=== PATIENT | female | born 1975 | race Caucasian/White ===

== ENCOUNTER 2016-07-03 20:17 | Emergency (ER) | payer OTHER ==
[2016-07-03] MEDS ORDERED: LORazepam 2 MG/ML VIAL IVP ONE (20:30)
[2016-07-03] MEDS ORDERED: ONDANSETRON HCL 4 MG TAB.RAPDIS PO ONE (20:39)
[2016-07-03] MEDS ORDERED: HYOSCYAMINE SULFATE 0.125 MG TAB.SUBL SL ONE (21:00)
[2016-07-03 21:15] VITALS: BP 149/92
--- NOTE | 2016-07-04 03:49 | ED Physician Documentation ---
Abdominal Pain - HISTORIAN Historian: patient - HPI Stated Complaint: ABD PAIN AND VOMITTING Chief Complaint: Abdominal Pain Additonal Information: panic attack earlier started the abd. issues Onset: hours (1) Duration: sudden-onset Timing: better Context: other (stress over family memeber). denies: out of country travel, bad food Severity: moderate Quality: cramping Associated Symptoms: nausea, vomiting Exacerbated by: other (anxiety) Relieved by: other (calming) Further Comments: no - ROS CONST: other (anxiety) GI/: other (as above) CVS/RESP: none EYES/ENT: none MS/SKIN/LYMPH: none NEURO/PSYCH: none - SOCIAL HX Smoking History: cigarettes Alcohol Use: none Drug Use: none - FAMILY HX Family History: no significant history - PAST HX Past History: other (anxiety, bipolar disorder, cad, ibs) Surgeries/Procedures: none Immunizations: referred to PCP Allergies/Adverse Reactions: Allergies Allergy/AdvReac Type Severity Reaction Status Date / Time Sulfa (Sulfonamide Allergy Unknown Verified 07/03/16 20:23 Antibiotics) [Sulfa(Sulfonamide Antibiotics)] - VITAL SIGNS Vital Signs: Vital Signs Temp Pulse Resp BP Pulse Ox 97.8 F 77 22 149/92 99 07/03/16 21:11 07/03/16 21:11 07/03/16 21:11 07/03/16 21:11 07/03/16 21:11 - REVIEWED ASSESSMENTS Nursing Assessment Reviewed: Yes Vitals Reviewed: Yes Progress - Results/Orders Results/Orders: no testing ordered - Progress Progress: pt. given 1 mg ativan im, 8 mg zofran p.o. and 0.25 mg levsin p.o. Critical Care Note - Critical Care Note Total Time (mins): 0 ED Results Lab/Radiology - Lab Results Lab Results: none ordered - Radiology Radiology Impressions: none ordered - Orders Orders: ED Orders Category Date Time Status Place Saline Lock/IV Now Care 07/03/16 20:30 Active Hyoscyamine Sulfate [Oscimin Sl] Med 07/03/16 21:00 Discontinued 0.25 mg SL NOW ONE LORazepam [Ativan] Med 07/03/16 20:30 Discontinued 1 mg IVP NOW ONE Ondansetron HCl Rapdis [Zofran Odt] Med 07/03/16 20:39 Discontinued 8 mg PO NOW ONE Abdominal Pain Physical Exam - Physical Exam General Appearance: alert, moderate distress EENT: eye inspection normal, ENT inspection normal, pharynx normal, no signs of dehydration, ABEBA, no nystagmus, TM's nml NECK: normal inspection, thyroid normal, supple RESPIRATORY: no resp distress, chest non-tender, breath sounds normal CVS: reg rate & rhythm, heart sounds normal, equal pulses, no murmur, no gallop , PMI nml ABDOMEN: soft, no organomegaly, normal bowel sounds, no abdominal bruit, no distension, non-tender BACK: normal inspection, no CVA tenderness SKIN: warm/dry, normal color EXTREMITIES: non-tender, normal range of motion, no evidence of injury, no edema NEURO: oriented X3, CN's nml as tested, motor nml, sensation nml, other (anxious , crying) Vital Signs: Vital Signs Temp Pulse Resp BP Pulse Ox 97.8 F 77 22 149/92 99 07/03/16 21:11 07/03/16 21:11 07/03/16 21:11 07/03/16 21:11 07/03/16 21:11 Discharge Clincal Impression: Panic attack Irritable bowel syndrome (IBS) Qualifiers: Irritable bowel syndrome type: without diarrhea Qualified Code(s): K58.9 - Irritable bowel syndrome without diarrhea Referrals: Gilmar Joy MD [Primary Care Provider] - 2 Days Comments: discharged home with no scripts, pt. to use meds as per Dr. Joy Condition: Stable Disposition: 01 HOME, SELF-CARE Decision to Admit: NO Decision Time: 21:00
== END 2016-07-03 21:15 | disposition home or self-care (01) ==
LOC: ED 20:17
DX: F41.9 Anxiety disorder, unspecified (principal)
CPT/HCPCS: A9270; J2060; 96374; 99283; S1016

== ENCOUNTER 2016-07-31 15:15 | Outpatient (CLI) | payer OTHER | END 2016-07-31 15:16 | LOC: LAB 15:15 | PROVIDERS: ATTEND Family Medicine | DX: M79.1 Myalgia (principal); E66.01 Morbid (severe) obesity due to excess calories | CPT/HCPCS: 36415; 80061; 85651; 86038; 87086 ==

== ENCOUNTER 2016-08-12 09:33 | Outpatient (CLI) | payer OTHER ==
--- NOTE | 2016-08-13 04:36 | Diagnostic Imaging Report ---
Report Submission Date: Aug 12, 2016 10:35:59 PM CDT Patient ~ Study Name: CALLI PATEL ~ Date: Aug 12, 2016 10:50:57 AM CDT ~ Modality Type: US Gender: F ~ Description: US EXAM ABD BACK WALL : 75 ~ Institution: [facility] Physician: ANGIE GIL ~ ~ ~ ~ Ultrasound renal History: Hematuria Findings: The right kidney measures 10.8 x 4.6 x 5.1 cm and exhibits normal echogenicity and morphology. The left kidney measures 10.5 x 5.2 x 5.6 cm and also exhibits normal echogenicity and morphology. There is no evidence of obstructive uropathy, nephrolithiasis, or border forming renal mass. Urinary bladder is unremarkable. A negligible post void bladder residual is observed. Impression: Normal renal sonogram. ~ Electronically signed on Aug 12, 2016 10:35:59 PM CDT by: Kalyan DAY
== END 2016-08-12 09:34 ==
LOC: RAD 09:33
PROVIDERS: ATTEND Family Medicine
DX: R31.9 Hematuria, unspecified (principal)
CPT/HCPCS: 76770

== ENCOUNTER 2016-08-22 18:41 | Emergency (ER) | payer OTHER ==
[2016-08-22] MEDS ORDERED: ORPHENADRINE CITRATE 60 MG/2ML IM ONE (19:10)
[2016-08-22] MEDS ORDERED: KETOROLAC TROMETHAMINE 60 MG/2 ML VIAL IM ONE (19:10)
[2016-08-22] MEDS ORDERED: ORPHENADRINE CITRATE 60 MG/2ML ONE (19:11)
[2016-08-22] MEDS ORDERED: KETOROLAC TROMETHAMINE 60 MG/2 ML VIAL ONE (19:11)
[2016-08-22] MEDS ORDERED: ONDANSETRON HCL/PF 4 MG/ 2ML VIAL ONE (19:13)
[2016-08-22] MEDS ORDERED: ONDANSETRON HCL/PF 4 MG/ 2ML VIAL IVP ONE (19:13)
[2016-08-22] MEDS ORDERED: LORazepam 2 MG/ML VIAL IVP ONE (19:28)
--- NOTE | 2016-08-22 20:12 | ED Physician Documentation ---
Abdominal Pain - HISTORIAN Historian: patient - HPI Stated Complaint: abdominal pain Chief Complaint: General Adult Additonal Information: Abdominal pain, like labor, began about noon today. Across entire abdomen. Nausea and vomiting x2. So nauseated she couldn't take her Bentyl, Reglan and Valium for irritable bowel syndrome. Last normal bowel movement today followed by a few other stools. Onset: hours Context: denies: out of country travel Quality: cramping Associated Symptoms: vomiting (pt says x8, says x2). denies: coffee ground emesis - ROS CONST: no problems - SOCIAL HX Smoking History: cigarettes - FAMILY HX Family History: no significant history - PAST HX Past History: other (IBS) Home Medications: Ambulatory Orders Medication Instructions Recorded Ondansetron HCl Rapdis [Zofran Odt] 4 mg PO Q8 PRN #10 tab 08/22/16 Allergies/Adverse Reactions: Allergies Allergy/AdvReac Type Severity Reaction Status Date / Time Sulfa (Sulfonamide Allergy Unknown Verified 07/03/16 20:23 Antibiotics) [Sulfa(Sulfonamide Antibiotics)] - VITAL SIGNS Vital Signs: Vital Signs Temp Pulse Resp BP Pulse Ox 99 H 96 H 166/115 99 08/22/16 18:45 08/22/16 18:45 08/22/16 18:45 08/22/16 18:45 - REVIEWED ASSESSMENTS Nursing Assessment Reviewed: Yes Vitals Reviewed: Yes Progress - Progress Progress: Abdominal series with 1 view chest Date of Exam: August 22, 2016. History: 41/F PATIENT COMPLAINS OF SEVERE ABDOMINAL PAIN IN THE UMBILICAL AND LOWER ABDOMEN X 8 HRS; HX OF IRRITABLE BOWEL SYNDROME; NO PREVIOUS SURGERIES (Hx ) / IRRITABLE BOWEL, SEVERE ABD PAIN (DICOM Hx) / IRRITABLE BOWEL, SEVERE ABD PAIN (Pt comments) Findings: No comparison studies are provided. The cardiac and mediastinal silhouettes are normal. The lungs are clear. The trachea is midline and the aortic arch contour is normal. There is no evidence of abdominal free air. Scattered mildly dilated gas filled segments of small bowel are present. There is gas and stool in the colon. A calcification in the right upper abdomen within the ramal contour likely represents a right renal calculus measuring 8 mm. There is mild degenerative lumbar spondylosis. Impression: No acute cardiopulmonary abnormality. Nonspecific abdominal bowel gas pattern. 8 mm right renal calculus. Electronically signed on Aug 22, 2016 8:10:10 PM CDT by: Alexa Sexton UDS non negative for benzodiazepines, cannabnoids, oxycodone Yells at provider. Mad because she did not give permission for drug screen. Wants more pain medication than she received. ED Results Lab/Radiology - Lab Results Lab Results: Lab Results 08/22/16 08/22/16 20:00 20:00 WBC 9.70 K/ul K/ul (4.00-12.00) RBC 4.93 M/ul M/ul (3.90-5.20) Hgb 15.2 g/dL g/dL (12.0-16.0) Hct 46.0 % % (34.5-46.5) MCV 93.2 fl fl (80.0-100.0) MCH 30.7 pg pg (28.0-34.0) MCHC 33.0 g/dL g/dL (30.0-36.0) RDW 14.3 % % (11.3-14.3) Plt Count 343 K/mm3 K/mm3 (130-400) Neut % (Auto) 78.1 % % (39.0-79.0) Lymph % (Auto) 15.1 % L % (16.0-50.0) [place] % (Auto) 3.5 % % (0.0-11.0) Eos % (Auto) 1.8 % % (0.0-6.8) Baso % (Auto) 0.9 (0.0-1.5) Neut # 7.6 # k/uL # k/uL (1.4-7.7) Lymph # 1.5 # k/uL # k/uL (0.6-4.0) [place] # 0.3 # k/uL # k/uL (0.0-0.9) Eos # 0.2 # k/uL # k/uL (0.0-0.6) Baso # 0.1 # k/uL # k/uL (0.0-0.5) Reactive Lymphs % 0.6 % % (0.0-5.0) Reactive Lymphs # 0.1 # k/uL # k/uL (0.0-0.8) Sodium 138 mmol/L mmol/L (136-145) Potassium 4.1 mmol/L mmol/L (3.5-5.0) Chloride 104 mmol/L mmol/L (98-110) Carbon Dioxide 27 mmol/L mmol/L (20-32) BUN 7 mg/dL L mg/dL (10-26) Creatinine 0.7 mg/dL mg/dL (0.4-1.5) Estimated Creat Clear 213 Est GFR ( Amer) > 60 (60 - ) Est GFR (Non-Af Amer) > 60 (60 - ) Glucose 110 mg/dL H mg/dL (70-99) Calcium 9.8 mg/dL mg/dL (8.5-10.5) Total Bilirubin 0.6 mg/dL mg/dL (0.2-1.2) AST 20 U/L U/L (0-41) ALT 17 U/L U/L (0-45) Alkaline Phosphatase 73 U/L U/L (46-116) Total Protein 8.0 g/dL g/dL (6.0-8.5) Albumin 4.6 g/dL g/dL (3.0-5.5) - Orders Orders: ED Orders Category Date Time Status Place Saline Lock/IV Now Care 08/22/16 19:10 Active ABDOMEN WITH PA CHEST [ABD SERIES PA CHEST] [RAD] Stat Exams 08/22/16 Taken CBC/PLATELET/DIFF Routine Lab 08/22/16 20:00 Completed CMP Routine Lab 08/22/16 20:00 Completed DRUG SCREEN URINE MEDICAL ONLY Routine Lab 08/22/16 Ordered URINALYSIS Routine Lab 08/22/16 Ordered URINE HCG [URINE HCG] Stat Lab 08/22/16 Uncollected Ketorolac Tromethamine [Toradol] Med 08/22/16 19:11 Discontinued 60 mg .ROUTE .STK-MED ONE Ketorolac Tromethamine [Toradol] Med 08/22/16 19:10 Discontinued 60 mg IM NOW ONE LORazepam [Ativan] Med 08/22/16 19:28 Discontinued 1 mg IVP NOW ONE Ondansetron HCl Rapdis [Zofran Odt] Med 08/22/16 21:03 Discontinued 12 mg PO NOW ONE Ondansetron HCl/Pf [Zofran 4 mg/2 ml] Med 08/22/16 19:13 Discontinued 4 mg .ROUTE .STK-MED ONE Ondansetron HCl/Pf [Zofran 4 mg/2 ml] Med 08/22/16 19:13 Discontinued 4 mg IVP NOW ONE Orphenadrine Citrate [Norflex] Med 08/22/16 19:11 Discontinued 60 mg .ROUTE .STK-MED ONE Orphenadrine Citrate [Norflex] Med 08/22/16 19:10 Discontinued 60 mg IM NOW ONE Abdominal Pain Physical Exam - Physical Exam General Appearance: severe distress (crying, yelling, retching, spitting), other (much saliva in wash basin) EENT: eye inspection normal, ENT inspection normal, pharynx normal, no signs of dehydration NECK: normal inspection, supple RESPIRATORY: no resp distress, breath sounds normal CVS: reg rate & rhythm, heart sounds normal, no murmur ABDOMEN: soft, normal bowel sounds, no distension, non-tender RECTAL: deferred BACK: normal inspection, no CVA tenderness, other (no midline tenderness) SKIN: warm/dry, normal color EXTREMITIES: normal range of motion (gait), no evidence of injury NEURO: CN's nml as tested, motor nml, sensation nml Vital Signs: Vital Signs Temp Pulse Resp BP Pulse Ox 99 H 96 H 166/115 99 08/22/16 18:45 08/22/16 18:45 08/22/16 18:45 08/22/16 18:45 Discharge Clincal Impression: Chronic abdominal pain Prescriptions: Ondansetron HCl Rapdis [Zofran Odt] 4 mg PO Q8 PRN #10 tab PRN Reason: Nausea / Vomiting Home Medications: Ambulatory Orders Ondansetron HCl Rapdis [Zofran Odt] 4 mg PO Q8 PRN #10 tab 08/22/16 Condition: Fair Disposition: 01 HOME, SELF-CARE Decision to Admit: NO Decision Time: 21:21
[2016-08-22 20:21] LABS: BASOPHILS % 0.9 (0.0-1.5); EOSINOPHILS % 1.8 % (0.0-6.8); MEAN CORPUSCULAR HEMOGLOBIN 30.7 pg (28.0-34.0); MEAN CORPUSCULAR VOLUME 93.2 fl (80.0-100.0); MONOCYTES % 3.5 % (0.0-11.0); NEUTROPHILS # 7.6 # k/uL (1.4-7.7)
[2016-08-22 20:32] LABS: eGFR (African) > 60; eGFR (Non-African) > 60
[2016-08-22] MEDS ORDERED: ONDANSETRON HCL 4 MG TAB.RAPDIS PO ONE (21:03)
[2016-08-22 21:36] VITALS: BP 173/120
--- NOTE | 2016-08-22 22:41 | Diagnostic Imaging Report ---
KATHY NEWTON~ [facility] [id number] [facility] [address] [place], [place]. [address] ~ ~ ~ ~ Report Submission Date: Aug 22, 2016 8:10:10 PM CDT Patient ~ Study Name: CALLI PATEL ~ Date: Aug 22, 2016 7:41:57 PM CDT ~ Modality Type: CR Gender: F ~ Description: ABDOMEN : 75 ~ Institution: [facility] Physician: KATHY NEWTON ~ ~ ~ ~ Abdominal series with 1 view chest Date of Exam: August 22, 2016. History:~ 41/F PATIENT COMPLAINS OF SEVERE ABDOMINAL PAIN IN THE UMBILICAL AND LOWER ABDOMEN X 8 HRS; HX OF IRRITABLE BOWEL SYNDROME; NO PREVIOUS SURGERIES (Hx ) / IRRITABLE BOWEL, SEVERE ABD PAIN (DICOM Hx) / IRRITABLE BOWEL, SEVERE ABD PAIN (Pt comments) Findings: No comparison studies are provided. The cardiac and mediastinal silhouettes are normal. The lungs are clear. The trachea is midline and the aortic arch contour is normal. There is no evidence of abdominal free air. Scattered mildly dilated gas filled segments of small bowel are present. There is gas and stool in the colon. A calcification in the right upper abdomen within the ramal contour likely represents a right renal calculus measuring 8 mm. There is mild degenerative lumbar spondylosis. Impression: No acute cardiopulmonary abnormality. Nonspecific abdominal bowel gas pattern. 8 mm right renal calculus. ~ Electronically signed on Aug 22, 2016 8:10:10 PM CDT by: Alexa DAY
[2016-08-23 05:56] LABS: AMPHETAMINE NEGATIVE ng/mL (<1000); BARBITURATES NEGATIVE ng/mL (<300); CANNABINOIDS NON NEGATIVE ng/mL (<50); COCAINE NEGATIVE ng/mL (<150); METHAMPHETAMINE NEGATIVE ng/mL (<1000); METHYLENEDIOXYMETHAMPHETAMINE NEGATIVE ng/mL (<500)
[2016-08-23 06:07] LABS: APPEARANCE,URINE CLOUDY (CLEAR); COLOR,URINE YELLOW (YELLOW); OCCULT BLOOD,URINE 3+ (NEGATIVE); UROBILINOGEN URINE 0.2 Eu (0.2-1.0)
[2016-08-26 10:40] LABS: CANNABINOIDS CONFIRMATION >150 ng/mL (<15)
== END 2016-08-22 21:20 | disposition home or self-care (01) ==
LOC: ED 18:41
DX: R10.9 Unspecified abdominal pain (principal)
CPT/HCPCS: 74022; 80053; 80365; 80377; 81002; 85025; A9270; J1885; J2060; J2360; J2405; 96372; 96374; 96375; 99283; G0481; G0482; S1016

== ENCOUNTER 2016-10-01 11:54 | Emergency (ER) | payer OTHER ==
[2016-10-01] MEDS: ONDANSETRON HCL/PF 4 MG/ 2ML VIAL IM ONE (12:28)
[2016-10-01] MEDS: LORazepam 2 MG/ML VIAL IVP ONE (12:29)
[2016-10-01] MEDS: HYOSCYAMINE SULFATE 0.125 MG TAB.SUBL SL STA ×2 (12:34)
[2016-10-01] MEDS: DICYCLOMINE HCL 10 MG/ML VIAL IM SCH (12:44)
[2016-10-01] MEDS ORDERED: PANTOPRAZOLE SODIUM INJ. 40 MG VIAL ONE (12:49)
[2016-10-01] MEDS ORDERED: 0.9 % SODIUM CHLORIDE 1,000 ML IV ONE (12:50)
[2016-10-01] MEDS ORDERED: 0.9 % SODIUM CHLORIDE 50 ML IV ONE (12:50)
[2016-10-01] MEDS: 0.9 % SODIUM CHLORIDE 1,000 ML IV ONE (12:55)
[2016-10-01] MEDS: PANTOPRAZOLE SODIUM 40 MG in 0.9 % SODIUM CHLORIDE 50 ML IV SCH (12:55)
[2016-10-01] MEDS: fentaNYL CITRATE/PF 100 MCG/ 2ML AMP IVP ONE (13:20)
[2016-10-01] MEDS: DICYCLOMINE HCL 20 MG TABLET PO ONE (13:22)
[2016-10-01] MEDS: ONDANSETRON HCL/PF 4 MG/ 2ML VIAL IVP ONE (13:55)
[2016-10-01 14:39] VITALS: BP 112/68
--- NOTE | 2016-11-20 12:48 | ED Physician Documentation ---
General Adult - HISTORIAN Historian: patient - HPI Stated Complaint: ABD PAIN/N/V Chief Complaint: General Adult Onset: hours Timing: still present Severity: moderate Further Comments: yes (Pt is a 41 yo female) - ROS CONST: no problems EYES/ENT: none CVS/RESP: none GI/: abdominal pain, vomiting, nausea MS/SKIN/LYMPH: none - PAST HX Past History: other (IBS) Allergies/Adverse Reactions: Allergies Allergy/AdvReac Type Severity Reaction Status Date / Time Sulfa (Sulfonamide Allergy Unknown Verified 10/01/16 12:35 Antibiotics) [Sulfa(Sulfonamide Antibiotics)] Home Medications: Ambulatory Orders Medication Instructions Recorded Ondansetron HCl Rapdis [Zofran Odt] 4 mg PO Q8 PRN #10 tab 08/22/16 - SOCIAL HX Smoking History: cigarettes - FAMILY HX Family History: No - VITAL SIGNS Vital Signs: Vital Signs Temp Pulse Resp BP Pulse Ox 98.5 F 91 H 24 175/112 97 10/01/16 11:54 10/01/16 11:54 10/01/16 11:54 10/01/16 11:54 10/01/16 11:54 - REVIEWED ASSESSMENTS Nursing Assessment Reviewed: Yes Vitals Reviewed: Yes Progress - Progress Progress: 1 L IVF Ativan 1 mg IV Zofran 4 mg IV x 2 Protonix 40 mg IV Hyoscyamine 0.25 mg po Fentanyl 50 mcg IV Bentyl 20 mg po much improved ED Results Lab/Radiology - Orders Orders: ED Orders Category Date Time Status 0.9 % Sodium Chloride [Normal Saline] 1,000 ml Med 10/01/16 12:50 Discontinued IV .STK-MED 0.9 % Sodium Chloride [Normal Saline] 1,000 ml Med 10/01/16 12:49 Discontinued IV Q1H 0.9 % Sodium Chloride [Sodium Chloride] 50 ml Med 10/01/16 12:50 Discontinued IV .STK-MED Dicyclomine HCl [Bentyl] Med 10/01/16 18:00 Discontinued 20 mg IM Q6 Dicyclomine HCl [Bentyl] Med 10/01/16 13:18 Discontinued 20 mg PO NOW ONE Hyoscyamine Sulfate [Oscimin Sl] Med 10/01/16 12:23 Discontinued 0.125 mg SL NOW STA Hyoscyamine Sulfate [Oscimin Sl] Med 10/01/16 12:26 Discontinued 0.125 mg SL NOW STA LORazepam [Ativan] Med 10/01/16 12:22 Discontinued 1 mg IVP NOW ONE Ondansetron HCl/Pf [Zofran 4 mg/2 ml] Med 10/01/16 12:09 Discontinued 4 mg IM NOW ONE Ondansetron HCl/Pf [Zofran 4 mg/2 ml] Med 10/01/16 13:54 Discontinued 4 mg IVP NOW ONE Pantoprazole Sodium [Protonix] Med 10/01/16 12:49 Discontinued 40 mg .ROUTE .STK-MED ONE Pantoprazole Sodium [Protonix] 40 mg Med 10/01/16 13:00 Ordered 0.9 % Sodium Chloride [Sodium Chloride] 50 ml IV DAILY fentaNYL CITRATE/PF [Duragesic] Med 10/01/16 13:18 Discontinued 50 mcg IVP NOW ONE General Adult Physical Exam - PHYSICAL EXAM GENERAL APPEARANCE: moderate distress EENT: pharynx normal NECK: normal inspection, supple RESPIRATORY: no resp distress, chest non-tender, breath sounds normal CVS: reg rate & rhythm, heart sounds normal ABDOMEN: soft, normal bowel sounds, tenderness (diffuse) BACK: normal inspection, no CVA tenderness SKIN: warm/dry, normal color EXTREMITIES: non-tender, normal range of motion, no evidence of injury NEURO: oriented X3, motor nml, sensation nml Discharge Clincal Impression: Abdominal pain Qualifiers: Abdominal location: generalized Qualified Code(s): R10.84 - Generalized abdominal pain Irritable bowel syndrome (IBS) Qualifiers: Irritable bowel syndrome type: unspecified Qualified Code(s): K58.9 - Irritable bowel syndrome without diarrhea Referrals: Gilmar Joy MD [Primary Care Provider] - Home Medications: Ambulatory Orders Ondansetron HCl Rapdis [Zofran Odt] 4 mg PO Q8 PRN #10 tab 08/22/16 Condition: Good Disposition: 01 HOME, SELF-CARE Decision to Admit: NO Decision Time: 14:20
== END 2016-10-01 14:30 | disposition home or self-care (01) ==
LOC: ED 11:54
DX: R10.84 Generalized abdominal pain (principal); K58.9 Irritable bowel syndrome, unspecified
CPT/HCPCS: A9270; J2060; J2405; J3010; J7030; 96372; 96374; 96375; 99283; 99284; S1016

== ENCOUNTER 2017-01-06 10:11 | Outpatient (CLI) | payer OTHER | END 2017-01-06 10:12 | LOC: LABRHC 10:11 | PROVIDERS: ATTEND Family Medicine | DX: Z30.40 Encounter for surveillance of contraceptives, unspecified (principal) | CPT/HCPCS: 88148; G0143 ==

== ENCOUNTER 2017-01-13 09:17 | Emergency (ER) | payer OTHER ==
[2017-01-13] MEDS ORDERED: DICYCLOMINE HCL 10 MG/ML VIAL IM ONE (09:51)
[2017-01-13 10:04] VITALS: BP 141/77
[2017-01-13] MEDS: ONDANSETRON HCL/PF 4 MG/ 2ML VIAL IVP ONE ×2 (10:15→12:28)
[2017-01-13] MEDS: 0.9 % SODIUM CHLORIDE 1,000 ML IV ONE (10:15)
[2017-01-13 10:33] LABS: BASOPHILS % 1.5 (0.0-1.5); EOSINOPHILS % 1.8 % (0.0-6.8); MEAN CORPUSCULAR VOLUME 92.5 fl (80.0-100.0); MONOCYTES % 2.2 % (0.0-11.0); NEUTROPHILS # 8.5 # k/uL (1.4-7.7)
[2017-01-13 10:50] LABS: eGFR (African) > 60; eGFR (Non-African) > 60
[2017-01-13] MEDS: DICYCLOMINE HCL 20 MG TABLET PO ONE (11:02)
--- NOTE | 2017-01-13 11:16 | ED Physician Documentation ---
Abdominal Pain - HISTORIAN Historian: patient, spouse - HPI Stated Complaint: exaberation of IBS with abd pain Chief Complaint: Abdominal Pain Onset: days ago (3) Duration: constant, gradual, persistent Timing: still present Context: other (no new exposures no fever no food issues ) Severity: moderate Quality: pain, cramping, sharp Associated Symptoms: nausea, vomiting, diarrhea, sweating, loss of appetite. denies: fever, chills, coffee ground emesis, bloody emesis, bloody stools, grossly bloody stools, mucous, chest pain - ROS CONST: other (she feels her heavy period caused this IBS flair ) GI/: other (she has history of IBS and she has had cramping and nausea with diarrhea and vomiting ) CVS/RESP: none MS/SKIN/LYMPH: none NEURO/PSYCH: none - SOCIAL HX Smoking History: cigarettes Alcohol Use: none Drug Use: none - FAMILY HX Family History: none - PAST HX Past History: other (IBS ) Other History: none Immunizations: referred to PCP - REVIEWED ASSESSMENTS Nursing Assessment Reviewed: Yes Vitals Reviewed: Yes <Anitha Jasso - Last Filed: 01/13/17 12:10> - HPI Exacerbated by: nothing Relieved by: nothing Further Comments: yes (Has had similar episodes in the past nad has been seen by GI.) <Gilmar Joy - Last Filed: 01/13/17 12:47> - PAST HX Allergies/Adverse Reactions: Allergies Allergy/AdvReac Type Severity Reaction Status Date / Time Sulfa (Sulfonamide Allergy Unknown Verified 01/13/17 10:04 Antibiotics) [Sulfa(Sulfonamide Antibiotics)] - VITAL SIGNS Vital Signs: Vital Signs Temp Pulse Resp BP Pulse Ox 98.3 F 73 20 141/77 100 01/13/17 09:17 01/13/17 12:29 01/13/17 12:29 01/13/17 09:17 01/13/17 12:29 Progress <Anitha Jasso - Last Filed: 01/13/17 12:10> <Gilmar Joy - Last Filed: 01/13/17 12:47> - Results/Orders Results/Orders: 1210 she states that she is feeling much better. Denies cramps, no diarrhea urge , denies nausea (Anitha Jasso) ED Results Lab/Radiology <Anitha Jasso - Last Filed: 01/13/17 12:10> <Gilmar Joy - Last Filed: 01/13/17 12:47> - Lab Results Lab Results: Lab Results 01/13/17 01/13/17 10:30 10:30 WBC 9.90 K/ul K/ul (4.00-12.00) RBC 4.77 M/ul M/ul (3.90-5.20) Hgb 14.8 g/dL g/dL (12.0-16.0) Hct 44.1 % % (34.5-46.5) MCV 92.5 fl fl (80.0-100.0) MCH 31.0 pg pg (28.0-34.0) MCHC 33.5 g/dL g/dL (30.0-36.0) RDW 13.7 % % (11.3-14.3) Plt Count 276 K/mm3 K/mm3 (130-400) Neut % (Auto) 85.6 % H % (39.0-79.0) Lymph % (Auto) 8.6 % L % (16.0-50.0) [place] % (Auto) 2.2 % % (0.0-11.0) Eos % (Auto) 1.8 % % (0.0-6.8) Baso % (Auto) 1.5 (0.0-1.5) Neut # (Auto) 8.5 # k/uL H # k/uL (1.4-7.7) Lymph # (Auto) 0.8 # k/uL # k/uL (0.6-4.0) [place] # (Auto) 0.2 # k/uL # k/uL (0.0-0.9) Eos # (Auto) 0.2 # k/uL # k/uL (0.0-0.6) Baso # (Auto) 0.2 # k/uL # k/uL (0.0-0.5) Reactive Lymphs % 0.4 % % (0.0-5.0) Reactive Lymphs # 0.0 # k/uL # k/uL (0.0-0.8) Sodium 140 mmol/L mmol/L (136-145) Potassium 3.7 mmol/L mmol/L (3.5-5.0) Chloride 108 mmol/L mmol/L (98-110) Carbon Dioxide 29 mmol/L mmol/L (20-32) BUN 7 mg/dL L mg/dL (10-26) Creatinine 0.8 mg/dL mg/dL (0.4-1.5) Estimated Creat Clear 176 Est GFR ( Amer) > 60 (60 - ) Est GFR (Non-Af Amer) > 60 (60 - ) Glucose 114 mg/dL H mg/dL (70-99) Calcium 9.8 mg/dL mg/dL (8.5-10.5) - Radiology Radiology Impressions: Examination: Obstruction series History: Abdominal discomfort Findings: 5 views obtained of the chest and abdomen. Single view the chest without focal infiltrate or effusion. Normal cardiac and mediastinal silhouette. No abnormal dilation of the large or small bowel. Air and stool throughout the large bowel. No suspicious calcification projecting over the renal fossa or the lower pelvic region. Pelvic phleboliths. Osseous structures demonstrate degenerative changes. Right rosie sacralization of L5. Impression: No acute cardiopulmonary process. No ileus or obstruction. No suspicious calcifications by plain film sensitivity. (Gilmar Joy) - Orders Orders: ED Orders Category Date Time Status Place IV Lock 1T Care 01/13/17 09:50 Active ABD SERIES [ABD SERIES PA CHEST] [RAD] Stat Exams 01/13/17 Ordered BMP [BMP] Routine Lab 01/13/17 10:30 Completed CBC/PLATELET/DIFF Routine Lab 01/13/17 10:30 Completed 0.9 % Sodium Chloride [Normal Saline] 1,000 ml Med 01/13/17 09:51 Discontinued IV Q2H Diazepam [Valium] Med 01/13/17 11:19 Discontinued 5 mg IVP NOW ONE Dicyclomine HCl [Bentyl] Med 01/13/17 09:51 Discontinued 20 mg IM NOW ONE Dicyclomine HCl [Bentyl] Med 01/13/17 10:57 Discontinued 20 mg PO NOW ONE Ondansetron HCl/Pf [Zofran 4 mg/2 ml] Med 01/13/17 09:52 Discontinued 4 mg IVP NOW ONE Ondansetron HCl/Pf [Zofran 4 mg/2 ml] Med 01/13/17 12:24 Discontinued 4 mg IVP NOW ONE Abdominal Pain Physical Exam - Physical Exam General Appearance: no acute distress, anxious RESPIRATORY: no resp distress, chest non-tender, breath sounds normal CVS: reg rate & rhythm, heart sounds normal, equal pulses, no murmur ABDOMEN: soft, normal bowel sounds, no distension, non-tender SKIN: warm/dry, normal color NEURO: oriented X3, CN's nml as tested <Anitha Jasso - Last Filed: 01/13/17 12:10> - Physical Exam ABDOMEN: No: rebound, guarding BACK: no CVA tenderness <Gilmar Joy - Last Filed: 01/13/17 12:47> - Physical Exam Vital Signs: Vital Signs Temp Pulse Resp BP Pulse Ox 98.3 F 73 20 141/77 100 01/13/17 09:17 01/13/17 12:29 01/13/17 12:29 01/13/17 09:17 01/13/17 12:29 Discharge Decision to Admit: NO Date of Decison to Admit: 01/13/17 Decision Time: 12:12 <Anitha Jasso - Last Filed: 01/13/17 12:10> <Gilmar Joy - Last Filed: 01/13/17 12:47> Clincal Impression: Abdominal pain Qualifiers: Abdominal location: generalized Qualified Code(s): R10.84 - Generalized abdominal pain Referrals: Gilmar Joy MD [Primary Care Provider] - 2 Days Condition: Stable Disposition: 01 HOME, SELF-CARE
[2017-01-13] MEDS: DIAZEPAM 5 MG/ML DISP.SYRIN IVP ONE (11:53)
--- NOTE | 2017-01-13 15:42 | Diagnostic Imaging Report ---
ANGIE GIL [facility] [id number] [facility].[address] [address] Report Submission Date: Jan 13, 2017 10:17:43 AM CDT Patient Study Name: CALLI PATEL Date: Jan 13, 2017 9:54:42 AM CDT Modality Type: CR Gender: F Description: CHEST,ABDOMEN : 75 Institution: [facility] Physician: ANGIE GIL Examination: Obstruction series History: Abdominal discomfort Findings: 5 views obtained of the chest and abdomen. Single view the chest without focal infiltrate or effusion. Normal cardiac and mediastinal silhouette. No abnormal dilation of the large or small bowel. Air and stool throughout the large bowel. No suspicious calcification projecting over the renal fossa or the lower pelvic region. Pelvic phleboliths. Osseous structures demonstrate degenerative changes. Right rosie sacralization of L5. Impression: No acute cardiopulmonary process. No ileus or obstruction. No suspicious calcifications by plain film sensitivity. Electronically signed on Jan 13, 2017 10:17:43 AM CDT by: Christian DAY
== END 2017-01-13 12:29 | disposition home or self-care (01) ==
LOC: ED 09:17
DX: R10.84 Generalized abdominal pain (principal)
CPT/HCPCS: 74022; 80048; 85025; J2405; J3360; J7030; 96361; 96372; 96374; 96376; 99283; S1016

== ENCOUNTER 2017-01-13 16:30 | Emergency (ER) | payer OTHER ==
--- NOTE | 2017-01-13 16:50 | ED Physician Documentation ---
Abdominal Pain - HISTORIAN Historian: patient - HPI Stated Complaint: abdominal pain Chief Complaint: Abdominal Pain Onset: other (consistent since last ER discharge 1229 [id number].) Duration: constant Timing: worse Severity: severe Quality: pain, cramping, sharp Associated Symptoms: chills, nausea, vomiting, diarrhea, sweating. 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 on meds that were not ready) - ROS GI/: denies: constipation, bloody stools, problems urinating CVS/RESP: none MS/SKIN/LYMPH: none NEURO/PSYCH: none - SOCIAL HX Smoking History: cigarettes Alcohol Use: none Drug Use: none - FAMILY HX Family History: none - PAST HX Past History: other (IBS history ) Ischemic Bowel Risk Factors: none Other History: none Surgeries/Procedures: none Immunizations: referred to PCP - REVIEWED ASSESSMENTS Nursing Assessment Reviewed: Yes Vitals Reviewed: Yes <Anitha Jasso - Last Filed: 01/13/17 18:35> - HPI Context: denies: out of country travel - ROS CONST: recent illness (PT REC FR DR JOY REPORTEDLY WAS HERE THIS AM) <Speedy Denny - Last Filed: 01/14/17 00:08> - PAST HX Allergies/Adverse Reactions: Allergies Allergy/AdvReac Type Severity Reaction Status Date / Time Sulfa (Sulfonamide Allergy Unknown Verified 01/13/17 16:58 Antibiotics) [Sulfa(Sulfonamide Antibiotics)] - VITAL SIGNS Vital Signs: Vital Signs Temp Pulse Resp BP Pulse Ox 96.1 F L 47 L 22 156/99 95 01/13/17 16:30 01/13/17 23:51 01/13/17 16:30 01/13/17 16:30 01/13/17 23:51 Progress <Anitha Jasso - Last Filed: 01/13/17 18:35> <Speedy Denny - Last Filed: 01/14/17 00:08> - Progress Progress: Friend with pt states she is vomiting. She states she is miserable no visible vomit noted in her emesis basin. She is trashing in her bed. Continues to have no guarding or pain with palpation Continues to cry out in pain. 1835: Less pain. She states she has pain still and she is crying although she does feel that she has pain and she is still vomiting. She states she is "just not ok" although after discussion dose admit that she has some decrease in pain. (Anitha Jasso) - Orders Orders: ED Orders Category Date Time Status Dicyclomine HCl [Bentyl] Med 01/13/17 21:48 Once 10 mg IM NOW ONE HYDROmorphone HCL/PF [Dilaudid] Med 01/13/17 20:49 Discontinued 1 mg IVP NOW ONE Ketorolac Tromethamine [Toradol] Med 01/13/17 16:57 Discontinued 60 mg IM NOW ONE LORazepam [Ativan] Med 01/13/17 20:48 Discontinued 1 mg IVP NOW ONE Lidocaine 2%Visc 15ml [Xylocaine] Med 01/13/17 18:39 Discontinued 600 mg .ROUTE .STK-MED ONE Mag Hydrox/Al Hydrox/Simeth [Mylanta] Med 01/13/17 18:39 Discontinued 30 ml PO .STK-MED ONE Mag Hydrox/Al Hydrox/Simeth [Mylanta] 30 ml Med 01/13/17 17:33 Discontinued Lidocaine 2%Visc 15ml [Xylocaine] 20 mg PHENobarb/HYOSCY/ATROPINE/SCOP [] 10 ml PO NOW Morphine Sulfate [DepoDur] Med 01/13/17 22:52 Once 2 mg IVP NOW ONE Ondansetron HCl Rapdis [Zofran Odt] Med 01/13/17 17:12 Discontinued 4 mg PO NOW ONE Ondansetron HCl/Pf [Zofran 4 mg/2 ml] Med 01/13/17 22:05 Once 4 mg IVP NOW ONE fentaNYL CITRATE/PF [Duragesic] Med 01/13/17 18:06 Discontinued 50 mcg IM NOW ONE fentaNYL CITRATE/PF [Duragesic] Med 01/13/17 19:06 Discontinued 50 mcg IM NOW ONE fentaNYL CITRATE/PF [Duragesic] Med 01/13/17 17:51 Discontinued 50 mcg IVP NOW ONE Abdominal Pain Physical Exam - Physical Exam General Appearance: moderate distress, anxious RESPIRATORY: no resp distress, chest non-tender, breath sounds normal CVS: reg rate & rhythm, heart sounds normal, equal pulses, no murmur ABDOMEN: soft, normal bowel sounds. No: no distension, non-tender, rigid, rebound, distended, guarding PELVIC EXAM: other (deferred ) RECTAL: other (deferred ) BACK: normal inspection SKIN: diaphoresis EXTREMITIES: non-tender NEURO: oriented X3, CN's nml as tested <Anitha Jasso - Last Filed: 01/13/17 18:35> - Physical Exam Vital Signs: Vital Signs Temp Pulse Resp BP Pulse Ox 96.1 F L 47 L 22 156/99 95 01/13/17 16:30 01/13/17 23:51 01/13/17 16:30 01/13/17 16:30 01/13/17 23:51 Discharge <Anitha Jasso - Last Filed: 01/13/17 18:35> Decision to Admit: NO Decision Time: 00:05 <Speedy Denny - Last Filed: 01/14/17 00:08> Clincal Impression: IBS FLARE Referrals: Gilmar Joy MD [Primary Care Provider] - 2 Days Comments: HOME F/U W/PCP. WE SUGGESTED [place] [facility] [place] BUT PT REFUSED. SHE IS RESTING QUIETLY NOW-WANTS TO GO HOME (Speedy Denny) Condition: Good Disposition: 01 HOME, SELF-CARE
[2017-01-13] MEDS: fentaNYL CITRATE/PF 100 MCG/ 2ML AMP IM ONE ×2 (17:05→18:35)
[2017-01-13] MEDS: KETOROLAC TROMETHAMINE 60 MG/2 ML VIAL IM ONE (17:12)
[2017-01-13] MEDS: ONDANSETRON HCL 4 MG TAB.RAPDIS PO ONE (17:16)
[2017-01-13] MEDS ORDERED: fentaNYL CITRATE/PF 100 MCG/ 2ML AMP IVP ONE (17:51)
[2017-01-13] MEDS ORDERED: MAG HYDROX/AL HYDROX/SIMETH 30 ML UDC PO ONE (18:39)
[2017-01-13] MEDS ORDERED: Lidocaine 2%Visc 15ml 20 MG/ML UDC ONE (18:39)
[2017-01-13] MEDS: MAG HYDROX/AL HYDROX/SIMETH 30 ML, Lidocaine 2%Visc 15ml 20 MG, PHENobarb/HYOSCY/ATROPI... PO ONE ×3 (18:59)
[2017-01-13] MEDS: LORazepam 2 MG/ML VIAL IVP ONE (21:00)
[2017-01-13] MEDS: HYDROmorphone HCL/PF 1 MG/ML DISP.SYRIN IVP ONE (21:18)
[2017-01-13] MEDS ORDERED: PHARMACY KEY 1 EACH EACH MC ONE (21:55)
[2017-01-13] MEDS ORDERED: ONDANSETRON HCL/PF 4 MG/ 2ML VIAL ONE (22:11)
[2017-01-13] MEDS: DICYCLOMINE HCL 20 MG TABLET PO ONE (22:20)
[2017-01-13] MEDS ORDERED: DICYCLOMINE HCL 20 MG TABLET PO ONE (22:25)
[2017-01-13] MEDS ORDERED: MORPHINE SULFATE 2 MG/ML DISP.SYRIN ONE (23:13)
[2017-01-13] MEDS: MORPHINE SULFATE 2 MG/ML DISP.SYRIN IVP ONE (23:15)
[2017-01-14 00:54] VITALS: BP 98/53
== END 2017-01-14 00:20 | disposition home or self-care (01) ==
LOC: ED 16:30
DX: K58.9 Irritable bowel syndrome, unspecified (principal)
CPT/HCPCS: A9270; J1170; J1885; J2060; J2270; J2405; J3010; 96372; 96374; 96375; 99284; S1016

== ENCOUNTER 2017-02-03 20:45 | Emergency (ER) | payer OTHER ==
[2017-02-03] MEDS ORDERED: ONDANSETRON HCL/PF 4 MG/ 2ML VIAL ONE (21:10)
[2017-02-03] MEDS ORDERED: 0.9 % SODIUM CHLORIDE 1,000 ML IV ONE (21:10)
[2017-02-03] MEDS ORDERED: MORPHINE SULFATE 2 MG/ML PREFILLED SYR ONE ×2 (21:11→21:52)
[2017-02-03] MEDS: ONDANSETRON HCL/PF 4 MG/ 2ML VIAL IVP ONE ×2 (21:17→23:18)
[2017-02-03] MEDS: MORPHINE SULFATE 4 MG/ML PREFILLED SYR IVP ONE (21:20)
[2017-02-03] MEDS: 0.9 % SODIUM CHLORIDE 1,000 ML IV ONE (21:25)
[2017-02-03] MEDS: LORazepam 2 MG/ML VIAL IVP ONE ×2 (21:44→22:13)
--- NOTE | 2017-02-03 21:52 | ED Physician Documentation ---
Abdominal Pain - HISTORIAN Historian: patient, other (sister) - HPI Stated Complaint: IBS FLAIR Chief Complaint: Abdominal Pain Additonal Information: pt here w/exab IBS-she is here frequently requires xs meds. we reviewed old records phyllis of 01-13-[address] JOY - IT was agreed we would try brief tx of MS and ZOFRAN W/IV fluids and if not successful would [place] [facility] HER EPISODE STD TODAY AFTER HARD BM AT 1400HRS. it has gradually gotten worse. last time here we gave her xs meds w/o apparent success. when i suggested she be [place] to [facility] [place] she decided to go home. she was scheduled to see DR JOY op on bue he thinks she cancelled the appt. Onset: hours (1400) Duration: constant Timing: worse Context: denies: out of country travel, bad food, recent trauma Severity: moderate, severe Quality: pain, cramping, sharp, other (cries out w/pain has dry heaves) Associated Symptoms: nausea, vomiting. denies: diarrhea (mild constipation) Exacerbated by: other (is just there) Relieved by: nothing (accd to pt--she lc bentyl and zofran at home) - ROS CONST: other (as above) GI/: denies: constipation, black stools, bloody urine, bloody stools, dark urine, problems urinating CVS/RESP: none MS/SKIN/LYMPH: none, other (is diaphoretic as usuaol w/episodes) - SOCIAL HX Smoking History: less than 1 pack/day Alcohol Use: none Drug Use: none - FAMILY HX Family History: no significant history - PAST HX Past History: other (ibs hiatal hernia) Surgeries/Procedures: none (has had [place] [facility] [place] and has had other similar GI evaluations) Allergies/Adverse Reactions: Allergies Allergy/AdvReac Type Severity Reaction Status Date / Time Sulfa (Sulfonamide Allergy Unknown Verified 02/03/17 21:02 Antibiotics) [Sulfa(Sulfonamide Antibiotics)] - VITAL SIGNS Vital Signs: Vital Signs Temp Pulse Resp BP Pulse Ox 108 H 22 176/128 98 02/03/17 20:45 02/03/17 20:45 02/03/17 20:45 02/03/17 20:45 - REVIEWED ASSESSMENTS Nursing Assessment Reviewed: Yes Vitals Reviewed: Yes ED Results Lab/Radiology - Orders Orders: ED Orders Category Date Time Status Place IV Lock 1T Care 02/03/17 21:23 Active 0.9 % Sodium Chloride [Normal Saline] 1,000 ml Med 02/03/17 21:10 Discontinued IV .STK-MED 0.9 % Sodium Chloride [Normal Saline] 1,000 ml Med 02/03/17 21:23 Active IV Q1H LORazepam [Ativan] Med 02/03/17 21:34 Discontinued 1 mg IVP NOW ONE Morphine Sulfate [DepoDUR] Med 02/03/17 21:24 Discontinued 4 mg IVP NOW ONE Morphine Sulfate [DepoDur] Med 02/03/17 21:11 Discontinued 2 mg .ROUTE .STK-MED ONE Ondansetron HCl/Pf [Zofran 4 mg/2 ml] Med 02/03/17 21:10 Discontinued 4 mg .ROUTE .STK-MED ONE Ondansetron HCl/Pf [Zofran 4 mg/2 ml] Med 02/03/17 21:25 Discontinued 4 mg IVP NOW ONE Abdominal Pain Physical Exam - Physical Exam General Appearance: moderate distress, anxious EENT: eye inspection normal NECK: normal inspection RESPIRATORY: chest non-tender, breath sounds normal. No: wheezes, rales CVS: reg rate & rhythm, heart sounds normal ABDOMEN: soft, tenderness (genl) BACK: normal inspection SKIN: No: warm/dry (diaphoresissignificant on arrival) NEURO: oriented X3, motor nml, sensation nml, depressed mood/affect Vital Signs: Vital Signs Temp Pulse Resp BP Pulse Ox 108 H 22 176/128 98 02/03/17 20:45 02/03/17 20:45 02/03/17 20:45 02/03/17 20:45 Discharge Clincal Impression: acute IBS vs drug seeking Referrals: Gilmar Joy MD [Primary Care Provider] - 2 Days Comments: pt agreed -to go [place] [facility] [place] ABOVE DID NOT WORK. THIS WAS AT INITIAL EVALUATION AT ADMISSION HERE IN THE ED. AFTER THE EVAL AND ABOVE MEDS SHE STILL C/O THAT SHE IS NOT BETTER THAT SHE STILL C/O PAIN. [place] [facility] [place]POKE W SHOE WORKER WHO REV CHART STATED SHE HAD BEEN TO GI FOR EVAL AND HAD REC SURGICAL EVAL BUT SHE DID NOT KEEP APPT. I SPOKE TO DR GEE ED DEPT. HE AGREED TO SEE HER BUT STATED HE WOULD NOT GIVE HER NARCOTICS. I TOLD HER OF THE CONVERSATION BUT THAT THE ED DR STATED HE WOULD EVALUATE BUT PROBABLY NOT GIVE HER MORE NARCOTICS. SHE THEN REFUSED TO GO TO THE [facility]. I ASLO SPOKE W/ HER SISTER AND ASKED THE SISTER TO CONVINCE PT [facility] [id number] pt has now agreed to go to the [facility] thanks to the help of the sister. she will be transferred via ambulance. Condition: Fair Disposition: 02 XFER T-TRM HOSP Decision to Admit: [id number] Decision Time: 23:47
[2017-02-03] MEDS ORDERED: PHARMACY KEY 1 EACH EACH MC ONE (23:08)
[2017-02-03] MEDS ORDERED: DICYCLOMINE HCL 20 MG TABLET PO ONE (23:20)
[2017-02-03] MEDS: DICYCLOMINE HCL 10 MG/ML VIAL IM ONE (23:30)
[2017-02-03] MEDS: DICYCLOMINE HCL 20 MG TABLET PO ONE (23:32)
[2017-02-03 23:52] VITALS: BP 156/127
== END 2017-02-03 23:51 | disposition short-term general hospital (02) ==
LOC: ED 20:45
DX: K58.8 Other irritable bowel syndrome (principal)
CPT/HCPCS: J2060; J2270; J2405; J7030; 96361; 96374; 96375; 99284; S1016

== ENCOUNTER 2017-03-02 09:22 | Emergency (ER) | payer OTHER ==
[2017-03-02] MEDS ORDERED: ONDANSETRON HCL/PF 4 MG/ 2ML VIAL ONE (09:39)
[2017-03-02] MEDS ORDERED: 0.9 % SODIUM CHLORIDE 1,000 ML IV ONE (09:39)
[2017-03-02] MEDS ORDERED: ONDANSETRON HCL/PF 4 MG/ 2ML VIAL IVP ONE (09:46)
[2017-03-02] MEDS ORDERED: fentaNYL CITRATE/PF 100 MCG/ 2ML AMP ONE (09:57)
[2017-03-02] MEDS ORDERED: DICYCLOMINE HCL 20 MG TABLET PO ONE ×2 (09:59→10:04)
[2017-03-02] MEDS ORDERED: fentaNYL CITRATE/PF 100 MCG/ 2ML AMP IVP ONE (10:02)
[2017-03-02] MEDS ORDERED: MORPHINE SULFATE 4 MG/ML PREFILLED SYR IVP ONE (10:11)
[2017-03-02 10:16] LABS: MEAN CORPUSCULAR HEMOGLOBIN 31.2 pg (28.0-34.0); MEAN CORPUSCULAR VOLUME 91.6 fl (80.0-100.0); MONOCYTES % 4.3 % (0.0-11.0); NEUTROPHILS # 9.4 # k/uL (1.4-7.7)
[2017-03-02] MEDS ORDERED: 0.9 % SODIUM CHLORIDE 1,000 ML IV SCH (10:30)
[2017-03-02 10:32] LABS: eGFR (African) > 60; eGFR (Non-African) > 60
[2017-03-02 10:57] LABS: APPEARANCE,URINE Clear (CLEAR); COLOR,URINE Yellow (YELLOW); OCCULT BLOOD,URINE 3+ (NEGATIVE)
[2017-03-02] MEDS ORDERED: HYOSCYAMINE SULFATE 0.125 MG TAB.SUBL SL SCH (11:00)
--- NOTE | 2017-03-02 11:16 | ED Physician Documentation ---
Abdominal Pain - HISTORIAN Historian: spouse - HPI Stated Complaint: abdominal pain Chief Complaint: Nausea,Vomiting,Diarrhea Additonal Information: ac exab chronic IBS onset early this am-has been out of meds. no different than freq other admisssions for ibs abd pain. pt cries sweats bends over as usual Onset: other (this am) Duration: constant, waxing, waning Timing: worse Context: denies: out of country travel, bad food Severity: moderate, severe Quality: pain, burning, cramping, sharp, stabbing Associated Symptoms: nausea, vomiting Relieved by: nothing - ROS CONST: no problems CVS/RESP: none EYES/ENT: none MS/SKIN/LYMPH: none NEURO/PSYCH: anxiety - SOCIAL HX Smoking History: cigarettes Alcohol Use: none Drug Use: none - FAMILY HX Family History: no significant history - PAST HX Past History: other (IBS) Other History: none Surgeries/Procedures: other (HERNIA) Allergies/Adverse Reactions: Allergies Allergy/AdvReac Type Severity Reaction Status Date / Time Sulfa (Sulfonamide Allergy Unknown Verified 03/02/17 09:52 Antibiotics) [Sulfa(Sulfonamide Antibiotics)] - VITAL SIGNS Vital Signs: Vital Signs Temp Pulse Resp BP Pulse Ox 98.1 F 89 22 130/82 99 03/02/17 09:43 03/02/17 09:43 03/02/17 09:43 03/02/17 09:43 03/02/17 09:43 - REVIEWED ASSESSMENTS Nursing Assessment Reviewed: Yes Vitals Reviewed: Yes ED Results Lab/Radiology - Lab Results Lab Results: Lab Results 03/02/17 03/02/17 03/02/17 10:50 10:20 10:10 WBC 11.70 K/ul K/ul (4.00-12.00) RBC 5.17 M/ul M/ul (3.90-5.20) Hgb 16.1 g/dL H g/dL (12.0-16.0) Hct 47.4 % H % (34.5-46.5) MCV 91.6 fl fl (80.0-100.0) MCH 31.2 pg pg (28.0-34.0) MCHC 34.0 g/dL g/dL (30.0-36.0) RDW 13.9 % % (11.3-14.3) Plt Count 292 K/mm3 K/mm3 (130-400) Neut % (Auto) 80.8 % H % (39.0-79.0) Lymph % (Auto) 11.8 % L % (16.0-50.0) [place] % (Auto) 4.3 % % (0.0-11.0) Eos % (Auto) 1.0 % % (0.0-6.8) Baso % (Auto) 1.0 (0.0-1.5) Neut # (Auto) 9.4 # k/uL H # k/uL (1.4-7.7) Lymph # (Auto) 1.4 # k/uL # k/uL (0.6-4.0) [place] # (Auto) 0.5 # k/uL # k/uL (0.0-0.9) Eos # (Auto) 0.1 # k/uL # k/uL (0.0-0.6) Baso # (Auto) 0.1 # k/uL # k/uL (0.0-0.5) Reactive Lymphs % 1.0 % % (0.0-5.0) Reactive Lymphs # 0.1 # k/uL # k/uL (0.0-0.8) Sodium 137 mmol/L mmol/L (137-145) Potassium 4.6 mmol/L mmol/L (3.5-5.1) Chloride 107 mmol/L mmol/L (98-107) Carbon Dioxide 22 mmol/L mmol/L (22-30) BUN 5 mg/dL L mg/dL (7-17) Creatinine 0.70 mg/dL mg/dL (0.52-1.04) Estimated Creat Clear 196 Est GFR ( Amer) > 60 (60 - ) Est GFR (Non-Af Amer) > 60 (60 - ) Glucose 131 mg/dL H mg/dL (74-106) Calcium 9.5 mg/dL mg/dL (8.4-10.2) Total Bilirubin 0.7 mg/dL mg/dL (0.2-1.3) AST 24 U/L U/L (15-46) ALT 19 U/L U/L (13-69) Alkaline Phosphatase 72 U/L U/L (38-126) Total Protein 7.4 g/dL g/dL (6.3-8.2) Albumin 4.0 g/dL g/dL (3.5-5.0) Urine Color Yellow (YELLOW) Urine Appearance Clear (CLEAR) Urine pH 7.0 (5.0 - 8.0) Ur Specific [place] 1.025 (1.010-1.030) Urine Protein 3+ mg/dL H mg/dL (NEGATIVE) Urine Ketones Negative mg/dL mg/dL (NEGATIVE) Urine Occult Blood 3+ H (NEGATIVE) Urine Nitrite Negative (NEGATIVE) Urine Bilirubin 1+ H (NEGATIVE) Urine Urobilinogen 1.0 Eu Eu (0.2-1.0) Ur Leukocyte Esterase Negative (NEGATIVE) Urine RBC 5-10 H (0-2 HPF) Urine WBC 2-5 (0-5 HPF) Ur Squamous Epith Cells Moderate H (NEG-FEW) Urine Bacteria Few H (NEGATIVE) Urine Mucus Present H (NEGATIVE) Urine Glucose Trace mg/dL mg/dL (NEGATIVE) - Radiology Radiology Impressions: ac abd= no acute condition seen - Orders Orders: ED Orders Category Date Time Status ABD SERIES PA CHEST [RAD] Stat Exams 03/02/17 Taken CBC/PLATELET/DIFF Routine Lab 03/02/17 10:10 Completed CMP Routine Lab 03/02/17 10:20 Completed URINALYSIS Routine Lab 03/02/17 10:50 Completed 0.9 % Sodium Chloride [Normal Saline] 1,000 ml Med 03/02/17 09:39 Discontinued IV .STK-MED 0.9 % Sodium Chloride [Normal Saline] 1,000 ml Med 03/02/17 10:30 Ordered IV Q10H Dicyclomine HCl [Bentyl] Med 03/02/17 09:59 Discontinued 20 mg PO .STK-MED ONE Dicyclomine HCl [Bentyl] Med 03/02/17 10:04 Discontinued 20 mg PO NOW ONE Hyoscyamine Sulfate [Oscimin Sl] Med 03/02/17 11:00 Ordered 0.125 mg SL TID Morphine Sulfate [DepoDUR] Med 03/02/17 10:11 Discontinued 4 mg IVP NOW ONE Ondansetron HCl/Pf [Zofran 4 mg/2 ml] Med 03/02/17 09:39 Discontinued 4 mg .ROUTE .STK-MED ONE Ondansetron HCl/Pf [Zofran 4 mg/2 ml] Med 03/02/17 09:46 Discontinued 4 mg IVP NOW ONE fentaNYL CITRATE/PF [Duragesic] Med 03/02/17 09:57 Discontinued 100 mcg .ROUTE .STK-MED ONE fentaNYL CITRATE/PF [Duragesic] Med 03/02/17 10:02 Discontinued 100 mcg IVP NOW ONE Abdominal Pain Physical Exam - Physical Exam General Appearance: moderate distress EENT: eye inspection normal NECK: normal inspection, thyroid normal, supple RESPIRATORY: no resp distress, chest non-tender, breath sounds normal CVS: reg rate & rhythm, heart sounds normal ABDOMEN: tenderness (genl) BACK: normal inspection SKIN: diaphoresis EXTREMITIES: non-tender, normal range of motion NEURO: oriented X3, sensation nml, mood/affect nml Vital Signs: Vital Signs Temp Pulse Resp BP Pulse Ox 98.1 F 89 22 130/82 99 03/02/17 09:43 03/02/17 09:43 03/02/17 09:43 03/02/17 09:43 03/02/17 09:43 Discharge Clincal Impression: acute EXab IBS Referrals: Gilmar Joy MD [Primary Care Provider] - 2 Days Condition: Good Disposition: 01 HOME, SELF-CARE Decision to Admit: NO Decision Time: 11:38
[2017-03-02 11:50] VITALS: BP 121/78
--- NOTE | 2017-03-02 13:07 | Diagnostic Imaging Report ---
PAT BRYANT [facility] [address] [facility].[address] [address] Report Submission Date: Mar 02, 2017 10:49:37 AM CDT Patient Study Name: CALLI PATEL Date: Mar 02, 2017 10:35:33 AM CDT Modality Type: CR Gender: F Description: CHEST,ABDOMEN : 75 Institution: [facility] Physician: PAT BRYANT Examination: Obstruction series History: Abdominal discomfort Findings: 4 views obtained of the chest and abdomen. Single view of the chest demonstrates normal cardiac silhouette. No focal infiltrate no effusion. No abnormal dilation of the large or small bowel. Air and stool throughout the large bowel. No suspicious calcification projecting over the renal fossa or the lower pelvic region. Pelvic phleboliths. Right rosie sacralization L5/S1. Sacroiliac joint early degenerative changes. Impression: No acute pulmonary process. No obstruction. No suspicious calcifications by plain film sensitivity. Electronically signed on Mar 02, 2017 10:49:37 AM CDT by: Christian DAY
== END 2017-03-02 11:48 | disposition home or self-care (01) ==
LOC: ED 09:22
DX: K58.9 Irritable bowel syndrome, unspecified (principal)
CPT/HCPCS: 74022; 80053; 81002; 85025; A9270; J2405; J3010; J7030; 96361; 96374; 96375; 99283; S1016

== ENCOUNTER 2017-06-10 01:04 | Emergency (ER) | payer OTHER ==
[2017-06-10] MEDS ORDERED: NORMAL SALINE 500 ML IV.SOLN IV ONE (01:27)
[2017-06-10] MEDS: 0.9 % SODIUM CHLORIDE 1,000 ML IV ONE ×2 (01:40→01:45)
[2017-06-10] MEDS: KETOROLAC TROMETHAMINE 30 MG/1ML VIAL IVP ONE (01:40)
[2017-06-10] MEDS: ONDANSETRON HCL/PF 4 MG/ 2ML VIAL IVP ONE (01:40)
[2017-06-10 01:41] LABS: BASOPHILS % 1.2 (0.0-1.5); EOSINOPHILS % 0.9 % (0.0-6.8); MEAN CORPUSCULAR HEMOGLOBIN 33.3 pg (28.0-34.0); MEAN CORPUSCULAR VOLUME 98.7 fl (80.0-100.0); MONOCYTES % 4.9 % (0.0-11.0); NEUTROPHILS # 7.3 # k/uL (1.4-7.7)
[2017-06-10 01:42] LABS: eGFR (African) > 60; eGFR (Non-African) > 60
[2017-06-10] MEDS: ACETAMINOPHEN 500 MG TABLET ONE (01:42)
--- NOTE | 2017-06-10 01:53 | ED Physician Documentation ---
Upper Respiratory Symptoms - HISTORIAN Historian: patient - HPI Stated Complaint: Nausea/Abdominal pain/Chest pain Chief Complaint: Cough/ Upper Respiratory Associated Symptoms: fever, chills, productive cough, headache Further Comments: yes (42 year old female patient presents with complaints of body aches, nausea, vomiting, fever and chills. Daughter was diagnosed with influenza per swab.) - ROS CONST/EYES: denies: weakness, eye redness, eye itching, other CVS/RESP: none LYMPH: denies: leg swelling, rash, swollen glands, ankle swelling, other GI/: vomiting, nausea. denies: abdominal pain, problems urinating, diarrhea NEURO/PSYCH: denies: fainting, dizziness, confusion, anxiety, depression, other MS/SKIN: denies: joint pain, muscle aches, rash, other - PAST HX Lung Disease: COPD PE Risk Factors: other (diverticulitis) Allergies/Adverse Reactions: Allergies Allergy/AdvReac Type Severity Reaction Status Date / Time Sulfa (Sulfonamide Allergy Unknown Verified 06/10/17 01:18 Antibiotics) [Sulfa(Sulfonamide Antibiotics)] Home Medications: Ambulatory Orders Medication Instructions Recorded Metoclopramide HCl [Reglan] 5 mg PO Q6 PRN 06/10/17 Promethazine HCl [Phenergan] 25 mg PO Q8H PRN #30 tablet 06/10/17 - SOCIAL HX Smoking History: cigarettes - FAMILY HX Family History: denies: none - VITAL SIGNS Vital Signs: Vital Signs Temp Pulse Resp BP Pulse Ox 98.8 F 79 20 137/98 98 06/10/17 01:05 06/10/17 02:30 06/10/17 02:30 06/10/17 02:30 06/10/17 02:30 - REVIEWED ASSESSMENTS Nursing Assessment Reviewed: Yes Vitals Reviewed: Yes Progress - Progress Progress: Did not fill Tamiflu prescription prescribed by Dr Joy. [facility] out of influenza swabs Patient continues to c/o nausea after zofran. Medicated with promethazine IM. Patient instructed to stop taking prn reglan while on promethazine. States "I can't keep it down". Patient has zofran at home. ED Results Lab/Radiology - Lab Results Lab Results: Lab Results 06/10/17 06/10/17 01:29 01:29 WBC 8.60 K/ul K/ul (4.00-12.00) RBC 4.55 M/ul M/ul (3.90-5.20) Hgb 15.2 g/dL g/dL (12.0-16.0) Hct 44.9 % % (34.5-46.5) MCV 98.7 fl fl (80.0-100.0) MCH 33.3 pg pg (28.0-34.0) MCHC 33.8 g/dL g/dL (30.0-36.0) RDW 15.5 % H % (11.3-14.3) Plt Count 233 K/mm3 K/mm3 (130-400) Neut % (Auto) 84.3 % H % (39.0-79.0) Lymph % (Auto) 8.0 % L % (16.0-50.0) [place] % (Auto) 4.9 % % (0.0-11.0) Eos % (Auto) 0.9 % % (0.0-6.8) Baso % (Auto) 1.2 (0.0-1.5) Neut # (Auto) 7.3 # k/uL # k/uL (1.4-7.7) Lymph # (Auto) 0.7 # k/uL # k/uL (0.6-4.0) [place] # (Auto) 0.4 # k/uL # k/uL (0.0-0.9) Eos # (Auto) 0.1 # k/uL # k/uL (0.0-0.6) Baso # (Auto) 0.1 # k/uL # k/uL (0.0-0.5) Reactive Lymphs % 0.8 % % (0.0-5.0) Reactive Lymphs # 0.1 # k/uL # k/uL (0.0-0.8) Sodium 138 mmol/L mmol/L (136-145) Potassium 3.6 mmol/L mmol/L (3.5-5.1) Chloride 105 mmol/L mmol/L (98-107) Carbon Dioxide 21 mmol/L L mmol/L (22-30) BUN 6 mg/dL L mg/dL (7-17) Creatinine 0.70 mg/dL mg/dL (0.52-1.04) Estimated Creat Clear 173 Est GFR ( Amer) > 60 (60 - ) Est GFR (Non-Af Amer) > 60 (60 - ) Glucose 112 mg/dL H mg/dL (74-106) Calcium 8.9 mg/dL mg/dL (8.4-10.2) Total Bilirubin 0.8 mg/dL mg/dL (0.2-1.3) AST 32 U/L U/L (15-46) ALT 28 U/L U/L (13-69) Alkaline Phosphatase 78 U/L U/L (38-126) Total Protein 7.3 g/dL g/dL (6.3-8.2) Albumin 4.1 g/dL g/dL (3.5-5.0) - Orders Orders: ED Orders Category Date Time Status CBC/PLATELET/DIFF Routine Lab 06/10/17 01:29 Completed CMP Routine Lab 06/10/17 01:29 Completed 0.9 % Sodium Chloride [Normal Saline] Med 06/10/17 01:27 Discontinued 1,000 ml IV NOW ONE 0.9 % Sodium Chloride [Normal Saline] 1,000 ml Med 06/10/17 01:29 Discontinued IV .STK-MED 0.9 % Sodium Chloride [Normal Saline] 1,000 ml Med 06/10/17 01:41 Discontinued IV Q1H Acetaminophen [Tylenol Extra Strength] Med 06/10/17 01:30 Discontinued 1,000 mg .ROUTE .STK-MED ONE Acetaminophen [Tylenol] Med 06/10/17 01:25 Discontinued 1,000 mg PO NOW ONE Ketorolac Tromethamine [Toradol] Med 06/10/17 01:25 Discontinued 30 mg IVP NOW ONE Ondansetron HCl/Pf [Zofran 4 mg/2 ml] Med 06/10/17 01:25 Discontinued 4 mg IVP NOW ONE Promethazine HCl [Phenergan] Med 06/10/17 01:57 Discontinued 25 mg IM NOW ONE Upper Respiratory Symptoms - EXAM General Appearance: other (moaning and crying) EENT: eyes nml inspection, nml ENT inspection, lids & conjunct. nml, PERRL, ear nml, nose nml, pharynx nml, airway nml Respiratory: no resp. distress, breath sounds nml, no pain on inspiration, speaks full sentences, no pleuritic chest pain Abdomen: non-tender, no organomegaly, nml bowel sounds, no distention CVS: reg rate & rhythm, heart sounds normal, equal pulses, no murmur, no gallop , PMI nml, no JVD, no friction rub, 24 Skin: color nml, no rash, warm,dry Extremities: non-tender, normal range of motion, no evidence of injury, no edema , J, LEARNING PROGRAM MANAGER Neuro/Psych: oriented x3, neuro intact, mood/affect nml, CN's nml as tested Discharge Clincal Impression: Influenza Nausea and vomiting Qualifiers: Vomiting type: unspecified Vomiting Intractability: non-intractable Qualified Code(s): R11.2 - Nausea with vomiting, unspecified Prescriptions: Promethazine HCl [Phenergan] 25 mg PO Q8H PRN #30 tablet PRN Reason: Nausea / Vomiting Additional Instructions: A virus cannot be treated with antibiotics. Rest Have plenty of sleep and rest. Stay away from others while you have a cold or flu. Take simple painkillers Such as Tylenol or ibuprofen, to help relieve headaches, muscles aches and pains and fever. Keep hydrated (drink plenty of fluids) This will help keep your throat moist and replace fluid lost due to a fever and sweating. Plenty of water is best. Avoid caffeine and alcohol as they will make you more dehydrated. Eat soft food If you have a sore throat soft foods are easier to swallow. Foods such as chicken soup may help a sore throat and reduce mucous. facility supervisor an over the counter decongestant such as pseudoped, dayquil and Nyquil at your pharmacy. You may want to try Vicks rub on your chest and/or feet. ( Caution: Dayquil and Nyquil contain 325mg of Tylenol/acetaminophen per tablespoon) Cough drops as needed for cough and sore throat. Increase your fluid intake juices, hot tea, non-caffeinated beverages Vitamin C may be helpful in decreasing the length of your cold. Use a humidifier in the room where you sleep. You can also sit in a steam filled bathroom 1-2 times a day. Tylenol every 4 hours 650mg -1000mg (do not exceed 4000mg in 24 hours) as needed for fever, pain and body aches. Alternate with Ibuprofen Ibuprofen 600-800mg every 6 hours as needed for fever, pain and body aches. See your primary care doctor if your symptoms become worse or do not improve in the next 3-4 days. Condition: Good Disposition: 01 HOME, SELF-CARE Decision to Admit: NO Decision Time: 02:30
[2017-06-10] MEDS: ACETAMINOPHEN 325 MG TABLET PO ONE (02:01)
[2017-06-10] MEDS: PROMETHAZINE HCL 25 MG/ML VIAL IM ONE (02:01)
[2017-06-10 02:52] VITALS: BP 137/98
== END 2017-06-10 02:30 | disposition home or self-care (01) ==
LOC: ED 01:04
DX: J11.1 Influenza due to unidentified influenza virus with other respiratory manifestations (principal); R11.10 Vomiting, unspecified
CPT/HCPCS: 80053; 85025; 96365; 96372; 96375; 99283; J1885; J2405; J2550; J7030; S1016

== ENCOUNTER 2017-08-29 16:42 | Emergency (ER) | payer OTHER ==
[2017-08-29] MEDS ORDERED: ONDANSETRON HCL/PF 4 MG/ 2ML VIAL IVP ONE (16:49)
[2017-08-29] MEDS ORDERED: 0.9 % SODIUM CHLORIDE 1,000 ML IV ONE ×3 (16:54→17:34)
[2017-08-29] MEDS ORDERED: MORPHINE SULFATE 4 MG/ML PREFILLED SYR IVP ONE (17:01)
[2017-08-29] MEDS ORDERED: MORPHINE SULFATE 4 MG/ML PREFILLED SYR ONE (17:03)
[2017-08-29 17:07] VITALS: BP 147/92
[2017-08-29 17:18] LABS: BASOPHILS % 1.3 (0.0-1.5); EOSINOPHILS % 1.8 % (0.0-6.8); MEAN CORPUSCULAR HEMOGLOBIN 32.7 pg (28.0-34.0); MEAN CORPUSCULAR VOLUME 98.4 fl (80.0-100.0); MONOCYTES % 3.7 % (0.0-11.0); NEUTROPHILS # 6.5 # k/uL (1.4-7.7)
--- NOTE | 2017-08-29 17:18 | ED Physician Documentation ---
General Adult - HISTORIAN Historian: patient - HPI Stated Complaint: ABD pain Chief Complaint: General Adult Additional Information: Constipated for 2-3 days Had bowel movement thsi am and abdominal pain began. Hurts all over and feels like labor. Has had three bowel movements today. Nauseated and vomiting. Onset: hours Timing: still present Modifying Factors: Took bentyl, reglan and 5 mg valium - ROS CONST: denies: fever - PAST HX Past History: other (IBD) Surgeries/Procedures: other (Depo) Allergies/Adverse Reactions: Allergies Allergy/AdvReac Type Severity Reaction Status Date / Time Sulfa (Sulfonamide Allergy Unknown Verified 08/29/17 17:01 Antibiotics) [Sulfa(Sulfonamide Antibiotics)] Home Medications: Ambulatory Orders Medication Instructions Recorded Promethazine HCl [Phenergan] 25 mg PO Q8H PRN #30 tablet 06/10/17 - SOCIAL HX Smoking History: cigarettes - FAMILY HX Family History: No - VITAL SIGNS Vital Signs: Vital Signs Temp Pulse Resp BP Pulse Ox 98.3 F 103 H 22 147/92 100 08/29/17 17:03 08/29/17 17:03 08/29/17 17:03 08/29/17 17:03 08/29/17 17:03 - REVIEWED ASSESSMENTS Nursing Assessment Reviewed: Yes Vitals Reviewed: Yes Progress - Progress Progress: Patient Study Name: CALLI PATEL Date: Aug 29, 2017 5:33:26 PM CDT Modality Type: DX Gender: F Description: ABDOMEN : 75 Institution: [facility] Physician: KATHY NEWTON - ER Abdomen series with chest radiographs, 4 images History: Nausea, vomiting Findings: The included chest radiograph demonstrates no active disease. Bowel gas pattern is normal. There is no obstruction, free intraperitoneal air or pathologic calcification. Impression: Normal bowel gas pattern. Electronically signed on Aug 29, 2017 5:59:10 PM CDT by: Ryder Castañeda ED Results Lab/Radiology - Orders Orders: ED Orders Category Date Time Status Place IV Lock 1T Care 08/29/17 16:49 Active ABD SERIES PA CHEST [RAD] Stat Exams 08/29/17 Ordered CBC/PLATELET/DIFF Routine Lab 08/29/17 16:53 Received CMP Routine Lab 08/29/17 16:53 Received URINALYSIS Routine Lab 08/29/17 Ordered 0.9 % Sodium Chloride [Normal Saline] 1,000 ml Med 08/29/17 16:54 Discontinued IV .STK-MED 0.9 % Sodium Chloride [Normal Saline] 1,000 ml Med 08/29/17 16:57 Active IV Q1H Morphine Sulfate [DepoDUR] Med 08/29/17 17:03 Discontinued 4 mg .ROUTE .STK-MED ONE Morphine Sulfate [DepoDUR] Med 08/29/17 17:01 Discontinued 4 mg IVP NOW ONE Ondansetron HCl/Pf [Zofran 4 mg/2 ml] Med 08/29/17 16:49 Discontinued 4 mg IVP NOW ONE General Adult Physical Exam - PHYSICAL EXAM GENERAL APPEARANCE: moderate distress EENT: eye inspection normal, ENT inspection normal (edentulous), pharynx normal , no signs of dehydration NECK: normal inspection, supple RESPIRATORY: no resp distress, breath sounds normal CVS: reg rate & rhythm, heart sounds normal ABDOMEN: soft, normal bowel sounds, no distension, tenderness (diffuse, not reproducible) BACK: normal inspection, no CVA tenderness, other (no vertebral tenderness) SKIN: warm/dry, normal color EXTREMITIES: normal range of motion, no evidence of injury, no edema NEURO: CN's nml as tested, motor nml, sensation nml Discharge Clincal Impression: Abdominal pain Qualifiers: Abdominal location: generalized Qualified Code(s): R10.84 - Generalized abdominal pain Referrals: Gilmar Joy MD [Primary Care Provider] - 2 Days Additional Instructions: A consistent diet may be helpful. Follow up with Dr. Joy or your log cutter in the next two weeks. Condition: Fair Decision to Admit: NO Decision Time: 18:40
[2017-08-29 17:23] LABS: eGFR (Non-African) > 60
[2017-08-29] MEDS ORDERED: HYOSCYAMINE SULFATE 0.125 MG TAB.SUBL SL ONE (17:30)
[2017-08-29] MEDS ORDERED: PHARMACY KEY 1 EACH EACH MC ONE (17:41)
[2017-08-29] MEDS ORDERED: LORazepam 2 MG/ML VIAL IVP ONE ×2 (18:04→18:34)
[2017-08-29] MEDS ORDERED: LORazepam 2 MG/ML VIAL ONE (18:08)
--- NOTE | 2017-08-29 18:13 | Diagnostic Imaging Report ---
KATHY NEWTON [facility] [address] [facility] [address] [address] Report Submission Date: Aug 29, 2017 5:59:10 PM CDT Patient Study Name: CALLI PATEL Date: Aug 29, 2017 5:33:26 PM CDT Modality Type: DX Gender: F Description: ABDOMEN : 75 Institution: [facility] Physician: KATHY NEWTON Abdomen series with chest radiographs, 4 images History: Nausea, vomiting Findings: The included chest radiograph demonstrates no active disease. Bowel gas pattern is normal. There is no obstruction, free intraperitoneal air or pathologic calcification. Impression: Normal bowel gas pattern. Electronically signed on Aug 29, 2017 5:59:10 PM CDT by: Ryder DAY
[2017-08-29] MEDS ORDERED: ACETAMINOPHEN 1,000 MG/100 ML INJ IV ONE ×2 (18:33)
[2017-08-30 07:04] LABS: APPEARANCE,URINE CLEAR (CLEAR); COLOR,URINE YELLOW (YELLOW); OCCULT BLOOD,URINE 2+ (NEGATIVE); PH URINE 7.5 (5.0 - 8.0); UROBILINOGEN URINE 0.2 Eu (0.2-1.0)
== END 2017-08-29 19:10 ==
LOC: ED 16:42
DX: R10.84 Generalized abdominal pain (principal)
CPT/HCPCS: 74022; 80053; 81002; 85025; A9270; J2060; J2270; J2405; J7030; 96365; 96366; 96375; 96376; 99283; S1016

== ENCOUNTER 2018-11-29 22:13 | Emergency (ER) | payer OTHER ==
[2018-11-29] MEDS ORDERED: ONDANSETRON HCL/PF 4 MG/ 2ML VIAL IVP ONE (22:30)
[2018-11-29] MEDS ORDERED: 0.9 % SODIUM CHLORIDE 1,000 ML IV ONE (22:30)
--- NOTE | 2018-11-29 22:30 | ED Physician Documentation ---
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 Pt has had vomiting and abd pain. Pt takes Bentyl, Valium, and Reglan at home, but this has not aleviated her distress.) - ROS CONST: no problems EYES/ENT: none CVS/RESP: none GI/: abdominal pain, vomiting, nausea MS/SKIN/LYMPH: none - PAST HX Past History: other (IBS, anxiety, abd hernia) Allergies/Adverse Reactions: Allergies Allergy/AdvReac Type Severity Reaction Status Date / Time Sulfa (Sulfonamide Allergy Unknown Verified 11/29/18 22:31 Antibiotics) [Sulfa(Sulfonamide Antibiotics)] Home Medications: Ambulatory Orders Medication Instructions Recorded Promethazine HCl [Phenergan] 25 mg PO Q8H PRN #30 tablet 06/10/17 Diazepam 5 mg PO BID PRN 11/29/18 Ciprofloxacin HCl [Cipro] 500 mg PO BID #20 tablet 11/30/18 Metronidazole 500 mg PO TID #30 tablet 11/30/18 - SOCIAL HX Smoking History: cigarettes - FAMILY HX Family History: No - VITAL SIGNS Vital Signs: Vital Signs Temp Pulse Resp BP Pulse Ox 147/92 08/29/17 19:10 - REVIEWED ASSESSMENTS Nursing Assessment Reviewed: Yes Vitals Reviewed: Yes Progress - Progress Progress: NS 1 L x 2 Zofran 4 mg IV Morphine 2 mg IV x 2 Bentyl [address] abd/pelvis w/o contrast: 1. Left colonic diverticulosis and possibly mild sigmoid diverticulitis. Recommend endoscopic or barium enema follow-up after treatment as mural thickening in the sigmoid colon is nonspecific. 2. Obesity, atherosclerosis, umbilical hernia repair, normal appendix, and normal amount of cul-de-sac fluid. 3. No evidence of obstructive uropathy or urolithiasis. d/c instructions: Rx Ciprofloxacin 500 mg. Take one every 12 hours for 10 days. (1st dose in ER) Rx Metronidazole 500 mg. Take one every 8 hours for 10 days. (1st dose in ER) Follow up with Dr. Joy. You may need a barium study after you have been treated for diverticulitis. General Adult Physical Exam - PHYSICAL EXAM GENERAL APPEARANCE: moderate distress EENT: pharynx normal NECK: normal inspection, supple RESPIRATORY: no resp distress, chest non-tender, breath sounds normal CVS: reg rate & rhythm, heart sounds normal ABDOMEN: soft, tenderness (generalized, moderate tenderness), decreased BS BACK: normal inspection, no CVA tenderness SKIN: warm/dry, normal color EXTREMITIES: non-tender, normal range of motion, no evidence of injury NEURO: oriented X3, motor nml, sensation nml Discharge Clincal Impression: Irritable bowel syndrome (IBS) Qualifiers: Irritable bowel syndrome type: unspecified Qualified Code(s): K58.9 - Irritable bowel syndrome without diarrhea Diverticulitis large intestine Qualifiers: Diverticulitis bleeding: without bleeding Diverticulitis complication: without perforation or abscess Qualified Code(s): K57.32 - Diverticulitis of large intestine without perforation or abscess without bleeding Prescriptions: Ciprofloxacin HCl [Cipro] 500 mg PO BID #20 tablet Metronidazole 500 mg PO TID #30 tablet Referrals: Gilmar Joy MD [Primary Care Provider] - 2 Days Condition: Good Disposition: 01 HOME, SELF-CARE Decision to Admit: NO Decision Time: 02:07
[2018-11-29] MEDS ORDERED: MORPHINE SULFATE 5 MG/ML ML IV ONE ×2 (22:36→23:07)
[2018-11-29] MEDS ORDERED: MORPHINE SULFATE 4 MG/ML VIAL ONE (22:37)
--- NOTE | 2018-11-30 00:02 | Diagnostic Imaging Report ---
ALISHA MCCONNELL [facility] [address] [facility] [address] [address] Report Submission Date: Nov 29, 2018 11:27:59 PM CDT Patient Study Name: CALLI PATEL Date: Nov 29, 2018 11:01:25 PM CDT Modality Type: DX Gender: F Description: ABDOMEN 1VIEW : 75 Institution: [facility] Physician: ALISHA MCCONNELL KUB Clinical history: Abdominal pain Technique ap supine radiograph of the abdomen Findings: The bowel gas pattern is nonspecific. No renal calcifications are seen. The bones are within normal limits. No abdominal masses identified. Impression: Negative KUB Electronically signed on Nov 29, 2018 11:27:59 PM CDT by: Brian DAY
[2018-11-30] MEDS ORDERED: DICYCLOMINE HCL IM STA (00:13)
[2018-11-30] MEDS ORDERED: MORPHINE SULFATE 5 MG/ML ML IV ONE (00:15)
[2018-11-30] MEDS ORDERED: 0.9 % SODIUM CHLORIDE 1,000 ML IV ONE (00:17)
--- NOTE | 2018-11-30 01:21 | Diagnostic Imaging Report ---
ALISHA MCCONNELL [facility] [address] [facility] [address] [place], [place]. [address] Report Submission Date: Nov 30, 2018 1:16:27 AM CDT Patient Study Name: CALLI PATEL Date: Nov 30, 2018 12:49:11 AM CDT Modality Type: CT\SR Gender: F Description: CT ABD PELVIS W/O CO : 75 Institution: [facility] Physician: ALISHA MCCONNELL Computed tomography abdomen pelvis without contrast History: Abdominal pain and hematuria Findings: Transverse abdomen and pelvis sections are obtained without contrast. There are no comparison scans. Obesity, minimal right coronary artery calcification, partial gallbladder contraction, aortoiliac atherosclerosis, and umbilical hernia repair are observed. The liver, kidneys, pancreas, adrenals, spleen, and small bowel loops are unremarkable. Several descending colon diverticula are present. There is no obstructive uropathy or nephrolithiasis. Bowel loops exhibit normal caliber and wall thickness. Pelvic sections reveal several sigmoid diverticula and sigmoid mural thickening. Minimal inflammation is present adjacent to the sigmoid colon. The appendix is normal. There is no uterine or adnexal enlargement. The urinary bladder is decompressed without evidence of ureteral or bladder stone. Numerous pelvic phleboliths are present. Minimal cul-de-sac fluid is observed. Impression: 1. Left colonic diverticulosis and possibly mild sigmoid diverticulitis. Recommend endoscopic or barium enema follow-up after treatment as mural thickening in the sigmoid colon is nonspecific. 2. Obesity, atherosclerosis, umbilical hernia repair, normal appendix, and normal amount of cul-de-sac fluid. 3. No evidence of obstructive uropathy or urolithiasis. Electronically signed on Nov 30, 2018 1:16:27 AM CDT by: Kalyan DAY
[2018-11-30] MEDS ORDERED: CIPROFLOXACIN HCL 500 MG TABLET PO ONE (01:53)
[2018-11-30] MEDS ORDERED: metroNIDAZOLE 500 MG TABLET PO ONE (01:53)
[2018-11-30 02:18] VITALS: BP 119/72
[2018-11-30 06:59] LABS: BASOPHILS % 0.7 % (0.0-1.5); NEUTROPHILS # 9.8 # k/uL (1.4-7.7)
[2018-11-30 07:02] LABS: eGFR (Non-African) > 60
[2018-11-30 07:10] LABS: APPEARANCE,URINE CLEAR (CLEAR); COLOR,URINE YELLOW (YELLOW); OCCULT BLOOD,URINE 2+ (NEGATIVE); URINE HCG NEGATIVE (NEGATIVE); UROBILINOGEN URINE 0.2 Eu (0.2-1.0)
== END 2018-11-30 02:05 | disposition home or self-care (01) ==
LOC: ED 22:13
DX: K58.9 Irritable bowel syndrome, unspecified (principal); K57.32 Diverticulitis of large intestine without perforation or abscess without bleeding
CPT/HCPCS: 74018; 74176; 80053; 81002; 81025; 83690; 85025; 96361; 96372; 96374; 96375; 96376; 99285; J2405; J7030; S1016